=== PATIENT | male | born 1970 | race Caucasian/White ===

== ENCOUNTER 2020-12-31 19:52 | Emergency (ER) | payer SELFPAY ==
[~2020-12-31] VITALS: Ht 165.1 cm; Wt 77.3 kg
[~2020-12-31 19:52] MED LIST: GEMF600T90 PO
[2020-12-31] MEDS ORDERED: SODIUM CHLORIDE 0.9% 1,000 ML IV ONE (23:00)
[2020-12-31 23:11] LABS: EOSINOPHILS % (AUTO) 4.2 % (1.0-6.0); HEMATOCRIT 43.2 % (41-53); HEMOGLOBIN 14.6 g/dL (13.5-17.5); LYMPHOCYTES # (AUTO) 2.8 K/uL (1.0-4.8); LYMPHOCYTES % (AUTO) 56.2 % (22.0-44.0); MEAN CORPUSCULAR HEMOGLOBIN 31.1 pg (26.0-34.0); MEAN CORPUSCULAR HGB CONC 33.7 G/dL (31.0-37.0); MEAN CORPUSCULAR VOLUME 92 fL (80-100); MONOCYTES # (AUTO) 0.4 K/uL (0.1-1.0); MONOCYTES % (AUTO) 8.1 % (2.0-9.0); NEUTROPHILS # (AUTO) 1.5 K/uL (1.8-7.7); NEUTROPHILS % (AUTO) 30.5 % (40.0-70.0); PLATELET COUNT (AUTO) 213 K/uL (150-450); RED BLOOD CELL COUNT(AUTO) 4.68 MIL/uL (4.50-5.90); RED CELL DISTRIBUTION WIDTH 13.5 % (11.5-14.5)
[2020-12-31 23:21] LABS: ANION GAP 10 mmol/L (8-16); CALCIUM, TOTAL 8.8 mg/dL (8.8-10.5); CARBON DIOXIDE 28 mmol/L (22-29); CHLORIDE 107 mmol/L (98-107); CREATININE 1.23 mg/dL (0.60-1.30); GLOMERULAR FILTR. RATE CALC > 60 mL/min (>60); GLUCOSE,RANDOM 112 mg/dL (70-110); POTASSIUM 4.2 mmol/L (3.5-5.1); SODIUM SERUM 145 mmol/L (136-145); UREA NITROGEN, BLOOD 18 mg/dL (7-18)
[2020-12-31 23:27] LABS: ALANINE AMINOTRANSFERASE 47 U/L (12-78); ALBUMIN 4.2 g/dL (3.4-5.0); ALKALINE PHOSPHATASE 64 U/L (46-116); APPEARANCE,URINE CLEAR (CLEAR); ASPARTATE AMINOTRANSFERASE 22 U/L (15-37); BILIRUBIN,TOTAL 0.5 mg/dL (0.1-1.0); BILIRUBIN,URINE NEGATIVE (NEGATIVE); GLUCOSE, URINE (UA) NEGATIVE (NEGATIVE); KETONES,URINE NEGATIVE (NEGATIVE); LEUKOCYTE ESTERASE ,URINE NEGATIVE (NEGATIVE); LIPASE 368 U/L (73-393); NITRATE,URINE NEGATIVE (NEGATIVE); OCCULT BLOOD,URINE NEGATIVE (NEGATIVE); PROTEIN,URINE NEGATIVE (NEGATIVE); TOTAL PROTEIN, SERUM 7.8 g/dL (6.4-8.2); UROBILINOGEN,URINE 0.2 mg/dL (<=1.0)
[2021-01-01] MEDS ORDERED: MECLIZINE HCL 25 MG TABLET PO ONE (01:30)
[2021-01-01 01:32] VITALS: BP 132/64
== END 2021-01-01 01:33 | disposition home or self-care (01) ==
LOC: EMS 19:54
DX: R42 Dizziness and giddiness (principal); R10.30 Lower abdominal pain, unspecified; E78.00 Pure hypercholesterolemia, unspecified
CPT/HCPCS: 70450; 71045; 80053; 81003; 83690; 84484; 85025; 93005; 96360; 99285; J7030; 36415-L1; 36415-TC